=== PATIENT | male | born 1950 | race African-American/Black ===

== ENCOUNTER → 2017-10-31 | Outpatient (CLI) | payer OTHER ==
[~2017-10-31] MED LIST: ATENOLOL50 MG PO; DAILY VITAMIN1 EAC3 PO; FISH OIL300 MG; FOLIC ACID0.4 MG; HYDROCHLOROTHIA25 MG PO; VITAMIN D400 UNIT PO
--- NOTE | 2017-10-31 11:56 | Diagnostic Imaging Report ---
PROCEDURE:US RETROPERITONEAL (KIDNEY). COMPARISON:Patients [facility], [place], KIDNEY, 12/10/2016, 10:45. INDICATIONS:Renal Cysts TECHNIQUE: Ramires scale color Doppler ultrasound kidneys FINDINGS: Right: 10.9 x 5.3 x 4.5 cm. Cortical thickness 2.4 cm. Left: 12 x 5.1 x 5.3 cm. Cortical thickness 2.3 cm Both kidneys demonstrate normal parenchymal echogenicity and contour. No stone or mass. No hydronephrosis. Cysts: Right: No conspicuous cysts Left: Mid anechoic with layering debris, likely milk of calcium or a thin septation, 3.5 x 2.8 x 2.8 cm (previously 3 x 3.5 x 3.1 cm). Medial inferior anechoic 1.8 x 1.5 x 2 cm (previously 1.4 x 1.5 x 1.6 cm) Survey views of urinary bladder are normal. Prostate volume: 127 mL (6.5 x 6 x 6.3 cm) CONCLUSION: 1. Left renal cysts have slightly increased in volume, but otherwise remain benign in appearance. 2. The previously seen right cyst is not conspicuous. 3. Prostatomegaly Dictated by: Roberto Carlos Guadarrama M.D. on 10/31/2017 at 12:04 Electronically approved by: Roberto Carlos Guadarrama M.D. on 10/31/2017 at 12:04
== END ==
LOC: US 10:58
PROVIDERS: ATTEND Urology
DX: N28.1 Cyst of kidney, acquired (principal)
CPT/HCPCS: 76770

== ENCOUNTER → 2019-01-06 | Outpatient (CLI) | payer MEDICARE, OTHER ==
--- NOTE | 2019-01-06 13:37 | Diagnostic Imaging Report ---
EXAMINATION: Renal ultrasound. CLINICAL HISTORY :Renal cyst COMPARISON: 12/10/2016 TECHNIQUE: Grayscale and color Doppler evaluation of the kidneys and bladder was performed in transverse and longitudinal planes. DISCUSSION: RIGHT KIDNEY: The right kidney measures 10.4 cm in length and shows normal echogenicity. No hydronephrosis, shadowing calculi or solid mass lesions. Right renal cyst noted on the examination is no longer identified. LEFT KIDNEY: The left kidney measures 12.4 cm in length and shows normal echogenicity. No hydronephrosis, shadowing calculi or solid mass lesions. Interpolar cyst is again noted measuring 4.2 x 3.6 x 3.2 cm (previously 3.1 x 3 x 3.5 cm). Upper pole cyst measures 1.8 x 1.5 x 1.9 cm (previously 1.6 x 1.4 x 1.5 cm.) BLADDER: Unremarkable. Right and left ureteral jets are identified. The prostate is enlarged with estimated volume 103 cc IMPRESSION: Marginal interval increase in size of left renal cysts, which remain without suspicious sonographic features. Right renal cyst described on the comparison examination is no longer identified. Prostatomegaly. Signed by: Dr. Monster Jeffers M.D. on 01/06/2019 1:34 PM
== END ==
LOC: US 11:55
PROVIDERS: ATTEND Urology
DX: N28.1 Cyst of kidney, acquired (principal)
CPT/HCPCS: 76770